=== PATIENT | female | born 1955 | race Caucasian/White ===

== ENCOUNTER 2016-11-12 13:12 | Emergency (ER) | payer OTHER ==
[~2016-11-12] VITALS: Ht 165.1 cm; Wt 68.0 kg
[~2016-11-12 13:12] MED LIST: LEVO.125 PO; MENE0.3T3 PO
[2016-11-12 13:17] VITALS: BP 115/66; PULSE 87; RESP 16; TEMP 98.2; O2SAT 90
[2016-11-12] MEDS ORDERED: RESP: IPRATROPIUM 0.5 MG/2.5 ML NEB NEB ONE (14:45)
[2016-11-12] MEDS ORDERED: SODIUM CHLORIDE 0.9% FLUSH 5 ML FLUSH IVF PRN (14:45)
[2016-11-12] MEDS ORDERED: methylPREDNISolone SOD SUCC 125 MG/2 ML VIAL IVP ONE (14:45)
--- NOTE | 2016-11-12 14:48 | PD ---
HPI Chief Complaint: Respiratory Symptoms Time Seen by Provider: 14:45 Travel History International Travel<30 days: No Contact w/Intl Traveler<30days: No Traveled to known affect area: No History of Present Illness HPI 61-year-old female presents to the emergency department for evaluation of coughing, increased shortness of breath. Patient states her symptoms registered on October 12, 2015. She states she has been on multiple antibiotics and prednisone for this over the past month. She states she went to [facility] today and was sent to the emergency department due to low oxygen saturation. The patient reports increasing shortness of breath over the past 2 days. She does report chest heaviness with coughing since symptoms started one month ago. Patient denies any history of COPD, lives in a long- term tobacco user. She states she was on Spiriva by her primary care physician , but it did not help so she does not currently use it. Patient denies any fevers or chills. She denies any history of congestive heart failure renal disease. Patient states she is allergic to albuterol stating "it causes me to pass out". PFSH Past Medical History Anxiety: Yes Depression: Yes Thyroid Disease: Yes Past Surgical History Hysterectomy: Yes Tonsillectomy: Yes Social History Alcohol Use: Yes ([place]ASS) Tobacco Use: Yes (1/4 PACK DAY) Substance Use: No Allergies-Medications (Allergen,Severity, Reaction): Coded Allergies: Albuterol (Unverified Allergy, Severe, BREATHING DIFFICULTY, 03/09/14) Ceclor (Verified Allergy, Severe, CAN'T BREATHE, 03/09/14) Iodinated Contrast Media (Verified Allergy, Severe, PASSED OUT, 03/09/14) Keflex (Verified Allergy, Severe, CHEST HEAVINESS, 03/09/14) Morphine (Verified Allergy, Severe, HALLUCINATES, 03/09/14) Novocain (Unverified Allergy, Severe, BREATHING DIFFICULTY, 03/09/14) Reported Meds & Prescriptions Reported Meds & Active Scripts Active Reported Oxycodone (Oxycodone HCl) 5 Mg Cap 5 Mg .ROUTE Q4H PRN Review of Systems Except as stated in HPI: all other systems reviewed are Neg Physical Exam Narrative GENERAL: Well-developed well-nourished female patient, afebrile. SKIN: Warm and dry. HEAD: Normocephalic. Atraumatic. EYES: No scleral icterus. No injection or drainage. NECK: Supple, trachea midline. No JVD or lymphadenopathy. CARDIOVASCULAR: Regular rate and rhythm without murmurs, gallops, or rubs. RESPIRATORY: Breath sounds equal bilaterally. No accessory muscle use. Lungs sounds with rhonchi and expiratory wheezes noted throughout. GASTROINTESTINAL: Abdomen soft, non-tender, nondistended. MUSCULOSKELETAL: No cyanosis, or edema. BACK: Nontender without obvious deformity. No CVA tenderness. Data Data Last Documented VS Vital Signs Date Time Temp Pulse Resp B/P Pulse Ox O2 Delivery O2 Flow Rate FiO2 11/12/16 15:27 95 Nasal Cannula 2 11/12/16 15:27 68 15 130/65 11/12/16 13:17 98.2 Orders Complete Blood Count With Diff (11/12/16 14:42) Basic Metabolic Panel (Bmp) (11/12/16 14:42) B-Type Natriuretic Peptide (11/12/16 14:42) Magnesium (Mg) (11/12/16 14:42) Ckmb (Isoenzyme) Profile (11/12/16 14:42) Troponin I (11/12/16 14:42) Iv Access Insert/Monitor (11/12/16 14:42) Electrocardiogram (11/12/16 14:42) Ecg Monitoring (11/12/16 14:42) Oximetry (11/12/16 14:42) Oxygen Administration (11/12/16 14:42) Chest, Single Ap (11/12/16 14:42) Sodium Chloride 0.9% Flush (Ns Flush) (11/12/16 14:45) Methylprednisolone So Succ Inj (Solumedr (11/12/16 14:45) Ipratropium Neb (Atrovent Neb) (11/12/16 14:45) Blood Culture (11/12/16 14:44) Lactic Acid Sepsis Protocol (11/12/16 14:44) Labs Laboratory Tests Test 11/12/16 15:00 White Blood Count 3.4 TH/MM3 Red Blood Count 4.96 MIL/MM3 Hemoglobin 13.6 GM/DL Hematocrit 40.0 % Mean Corpuscular Volume 80.6 FL Mean Corpuscular Hemoglobin 27.4 PG Mean Corpuscular Hemoglobin 34.1 % Concent Red Cell Distribution Width 14.5 % Platelet Count 119 TH/MM3 Mean Platelet Volume 8.1 FL Neutrophils (%) (Auto) 51.3 % Lymphocytes (%) (Auto) 35.7 % Monocytes (%) (Auto) 12.0 % Eosinophils (%) (Auto) 0.6 % Basophils (%) (Auto) 0.4 % Neutrophils # (Auto) 1.8 TH/MM3 Lymphocytes # (Auto) 1.2 TH/MM3 Monocytes # (Auto) 0.4 TH/MM3 Eosinophils # (Auto) 0.0 TH/MM3 Basophils # (Auto) 0.0 TH/MM3 CBC Comment DIFF FINAL Differential Comment Sodium Level 134 MEQ/L Potassium Level 4.0 MEQ/L Chloride Level 99 MEQ/L Carbon Dioxide Level 27.5 MEQ/L Anion Gap 8 MEQ/L Blood Urea Nitrogen 6 MG/DL Creatinine 0.52 MG/DL Estimat Glomerular Filtration 120 ML/MIN Rate Random Glucose 89 MG/DL Lactic Acid Level 0.9 mmol/L Calcium Level 8.6 MG/DL Magnesium Level 1.9 MG/DL Total Creatine Kinase 87 U/L Troponin I LESS THAN 0.02 NG/ML B-Type Natriuretic Peptide 7 PG/ML MDM Medical Decision Making Medical Screen Exam Complete: Yes Emergency Medical Condition: Yes Medical Record Reviewed: Yes Interpretation(s) chest x-ray - CONCLUSION: No acute cardiopulmonary disease. Degenerative changes and scoliosis of the thoracic spine. Differential Diagnosis COPD versus bronchitis versus pneumonia versus CHF Narrative Course 61-year-old female presents to the emergency department for evaluation of shortness of breath and cough for 1 month, but worsening over the past 2 days. EKG, CBC, BNP, BMP, magnesium, CK-MB, troponin, blood cultures 2, lactic acid are ordered and pending. Chest x-ray is ordered and pending. Patient is given Solu-Medrol 125 mg IV, ipratropium nebulizer due to being allergic to albuterol. EKG shows sinus rhythm, heart rate 70, no acute ST changes. CBC shows WBC 3.4, platelets 119. BMP shows no acute abnormality. Magnesium is 1.9. CK is 87. Troponin is less than 0.02. BNP is 7. Lactic acid is 0.9. Chest x-ray shows n o acute cardiopulmonary disease; degenerative changes and scoliosis of the thoracic spine. Upon repeat assessment, the patient states she feels much better. Lungs sounds are now clear to auscultation throughout. Patient would like to go home. Case is discussed with my attending physician, Dr. Solorzano, who agrees with plan and disposition. She'll be discharged with a prescription for prednisone and doxycycline. She is encouraged to follow up with her primary care physician. Symptoms are most consistent with COPD. Patient is instructed to return for any acute worsening of symptoms. Patient is agreeable. The patient was discharged in stable condition with instructions, including return instructions and follow up instructions. Diagnosis Primary Impression: COPD (chronic obstructive pulmonary disease) Qualified Code: J44.9 - Chronic obstructive pulmonary disease, unspecified COPD type Referrals: Primary Care Physician 2 days Patient Instructions: General Instructions, Upper Respiratory Infection (ED) Additional Instructions: Take prednisone as directed. Start this tomorrow. Take doxycycline as directed until gone. Stop smoking. Follow-up with your primary care physician. Return to the emergency department for any acute worsening of symptoms. Med/Other Pt SpecificInfo: Prescription(s) given Scripts Doxycycline Hyclate 100 Mg Phr310 Mg PO BID #20 CAP Ref 0 Prov:Brittani Strong 11/12/16 Prednisone 20 Mg Tab40 Mg PO DAILY 4 Days Ref 0 Prov:Brittani Strong 11/12/16 Disposition: 01 DISCHARGE HOME Condition: Stable Brittani Strong Nov 12, 2016 14:48
[2016-11-12 15:19] LABS: AUTOMATED NEUTROPHIL # 1.8 TH/MM3 (1.8-7.7); BASOPHIL % 0.4 % (0.0-2.0); EOSINOPHIL % 0.6 % (0.0-4.0); HEMO FLAGS DIFF FINAL; LYMPH % 35.7 % (9.0-44.0); LYMPHOCYTE # 1.2 TH/MM3 (1.0-4.8); MEAN CELL VOLUME 80.6 FL (80.0-100.0); MEAN CORPUSCULAR HEMOGLOBIN 27.4 PG (27.0-34.0); MEAN CORPUSCULAR HGB CONC 34.1 % (32.0-36.0); NEUT % 51.3 % (16.0-70.0); PLATELET COUNT 119 TH/MM3 (150-450); RED BLOOD COUNT 4.96 MIL/MM3 (4.00-5.30); RED CELL DISTRIBUTION WIDTH 14.5 % (11.6-17.2); WHITE BLOOD COUNT 3.4 TH/MM3 (4.0-11.0)
[2016-11-12] MEDS ORDERED: TRAM50TA PO (15:19)
[2016-11-12] MEDS ORDERED: PRAV20TA2 PO (15:19)
[2016-11-12] MEDS ORDERED: CHOL50008 PO (15:19)
[2016-11-12] MEDS ORDERED: ESTR0.5T PO (15:19)
[2016-11-12] MEDS ORDERED: CIPR500T2 PO (15:19)
[2016-11-12] MEDS ORDERED: XANA1TAB2 PO (15:19)
[2016-11-12] MEDS ORDERED: LEVO50TA4 PO (15:19)
[2016-11-12 15:27] VITALS: BP 130/65; PULSE 68; RESP 15; O2SAT 95
[2016-11-12 15:33] LABS: ANION GAP 8 MEQ/L (5-15); BICARBONATE 27.5 MEQ/L (21.0-32.0); BLOOD UREA NITROGEN 6 MG/DL (7-18); CHLORIDE 99 MEQ/L (98-107); GLOMERULAR FILTRATION RATE 120 ML/MIN (>89); MAGNESIUM 1.9 MG/DL (1.5-2.5); SODIUM (NA) 134 MEQ/L (136-145)
[2016-11-12 15:38] LABS: CREATINE KINASE 87 U/L (26-192)
[2016-11-12] MEDS ORDERED: OXYC1CAP (16:09)
--- NOTE | 2016-11-12 16:16 | RADRPT ---
EXAM DATE/TIME: 11/12/2016 13:16 [facility] COMPARISON: No previous studies available for comparison. INDICATIONS : Chest Pain. Shortness of breath MEDICAL HISTORY : None. SURGICAL HISTORY : None. ENCOUNTER: Initial ACUITY: 3 days PAIN SCORE: 0/10 LOCATION: Bilateral chest FINDINGS: A single view of the chest demonstrates the lungs to be symmetrically aerated without evidence of mas s, infiltrate or effusion. The cardiomediastinal contours are unremarkable. Degenerative changes and scoliosis of the thoracic spine. CONCLUSION: No acute cardiopulmonary disease. Degenerative changes and scoliosis of the thoracic spine. Curtis Diez MD on November 12, 2016 at 16:13 Board Certified Radiologist. This report was verified electronically.
[2016-11-12] MEDS ORDERED: DOXY100C PO (16:28)
[2016-11-12] MEDS ORDERED: PRED20 PO (16:28)
--- NOTE | 2016-11-13 13:05 | EKG ---
Date Performed: 11/12/2016 Time Performed: 15:46:36 PTAGE: 61 years EKG: Sinus rhythm NORMAL ECG NO PREVIOUS TRACING DOCTOR: Dru Salcedo Interpretating Date/Time 11/13/2016 12:59:49
== END 2016-11-12 16:56 | disposition home or self-care (01) ==
LOC: NEPC 13:12
DX: J44.9 Chronic obstructive pulmonary disease, unspecified (principal); E07.9 Disorder of thyroid, unspecified; F17.200 Nicotine dependence, unspecified, uncomplicated; Z86.59 Personal history of other mental and behavioral disorders
CPT/HCPCS: 71010; 80048; 82550; 83605; 83735; 83880; 84484; 85025; 87040; 93005; 94664; 96374; 99285; J2930; J7644